=== PATIENT | female | born 1965 | race American Indian/Alaskan Native ===

== ENCOUNTER 2020-11-21 00:49 | Emergency (ER) | payer SELFPAY ==
--- NOTE | 2020-11-21 01:27 | Event Note ---
ED Screening Note Date of service: 11/21/20 Time: :26 ED Screening Note: Pt c/o hearing voices x 1 week denies hx of schizohrenia or bipolar disorder no SI/HI or visual hallucinations denies JUAREZ or vision changes This initial assessment/diagnostic orders/clinical plan/treatment(s) is/are norton bject to change based on patients health status, clinical progression and re- assessment by fellow clinical providers in the ED. Further treatment and workup at subsequent clinical providers discretion. Patient/guardian urged not to elope from the ED as their condition may be serious if not clinically assessed and managed. Initial orders include: labs CT head
[2020-11-21 02:14] LABS: Eosinophils # (Auto) 0.1 K/mm3 (0.0-0.4); Hematocrit 30.1 % (30.3-42.9); Hemoglobin 9.4 gm/dl (10.1-14.3); Lymphocytes # (Auto) 1.4 K/mm3 (1.2-5.4); Lymphocytes % (Auto) 30.5 % (13.4-35.0); Mean Corpuscular HGB Conc 31 % (30-34); Monocytes # (Auto) 0.3 K/mm3 (0.0-0.8); Monocytes % (Auto) 6.6 % (0.0-7.3); Platelet Count 227 K/mm3 (140-440); Red Blood Count 4.42 M/mm3 (3.65-5.03); Red Cell Distribution Width 17.3 % (13.2-15.2)
[2020-11-21 02:15] LABS: Mean Corpuscular Volume 68 fl (79-97)
--- NOTE | 2020-11-21 02:20 | Cat Scan Report ---
CT HEAD/BRAIN WO CON INDICATION / CLINICAL INFORMATION: Patient claims to have auditory hallucinations. TECHNIQUE: All CT scans at this location are performed using CT dose reduction for ALARA by means of automated e xposure control. COMPARISON: None available. FINDINGS: The ventricular system is normal in size and configuration. There are minimal small vessel ischemic c hanges in the periventricular white matter. No focal lesion or mass effect is seen. There is no evide nce of intracranial hemorrhage or acute major vessel occlusion. The calvarium is intact. The visualized paranasal sinuses and mastoid air cells are clear. IMPRESSION: No acute abnormality. Signer Name: Kurtis Sandy MD Signed: 11/21/2020 2:16 AM Workstation Name: [id number]
[2020-11-21 02:34] LABS: Alanine Aminotransferase 10 units/L (7-56); Albumin 4.1 g/dL (3.9-5); BUN/Creatinine Ratio 23; Blood Urea Nitrogen 18 mg/dL (7-17); Calcium 9.3 mg/dL (8.4-10.2); Hemolysis Index 2
--- NOTE | 2020-11-21 04:42 | Emergency Department Report ---
HPI - General Chief Complaint: Psych Time Seen by Provider: 11/21/20 01:05 - [facility] HPI: Room 29 The patient is a 55-year-old female present with a chief complaint of auditory hallucinations. Patient states for several months only at night she hears audit ory hallucinations. The patient states that the hallucinations are a low voice talking about things that they are going to do to her for example she heard the voices state "let's go on and knock her off so we can get the insurance money." ED Past Medical Hx - Past Medical History Previous Medical History?: Yes Hx Hypertension: Yes Hx Asthma: Yes (as a child) - Surgical History Past Surgical History?: No - Family History Family history: no significant - Social History Smoking Status: Never Smoker Substance Use Type: None (Denies illicit drug use) - Medications Home Medications: Home Medications Medication Instructions Recorded Confirmed Last Taken Type Valsartan [Diovan] 160 mg PO QDAY 11/21/20 11/21/20 Unknown History amLODIPine [Norvasc] 5 mg PO DAILY 11/21/20 11/21/20 Unknown History ED Review of Systems ROS: Stated complaint: MH EVAL Other details as noted in HPI Constitutional: no symptoms reported Eyes: denies: eye pain ENT: denies: throat pain Respiratory: no symptoms reported Cardiovascular: denies: chest pain Endocrine: no symptoms reported Gastrointestinal: denies: abdominal pain Genitourinary: denies: dysuria Musculoskeletal: denies: back pain Neurological: denies: headache Psychiatric: auditory hallucinations. denies: visual hallucinations, homicidal thoughts, suicidal thoughts Physical Exam - Physical Exam Physical Exam: GENERAL: The patient is well-developed well-nourished female sitting in chair not appearing to be in acute distress. [] HEENT: Normocephalic. Atraumatic. Extraocular motions are intact. Patient has moist mucous membranes. NECK: Supple. No meningitic signs are noted. No nuchal rigidity CHEST/LUNGS: Clear to auscultation. There is no respiratory distress noted. HEART/CARDIOVASCULAR: Regular. There is no tachycardia. There is no gallop rub or murmur. ABDOMEN: Abdomen is soft, nontender. Patient has normal bowel sounds. There is no abdominal distention. SKIN: There is no rash. There is no edema. There is no diaphoresis. NEURO: The patient is awake, alert, and oriented. The patient is cooperative. The patient has no focal neurologic deficits. The patient has normal speech. Cranial nerves II through XII grossly intact MUSCULOSKELETAL:There is no evidence of acute injury. ED Medical Decision Making - Lab Data Result diagrams: 11/21/20 01:39 11/21/20 01:39 - Differential Diagnosis Psychosis NOS, adjustment disorder, schizophrenia, bipolar disorder Critical care attestation.: If time is entered above; I have spent that time in minutes in the direct care of this critically ill patient, excluding procedure time. ED Disposition Clinical Impression: Auditory hallucinations Disposition: DC/TX-65 PSY HOSP/PSY UNIT Is pt being admited?: No Does the pt Need Aspirin: No Condition: Stable Referrals: LUIS DANIEL BAHENA MD [Primary Care Provider] - 3-5 Days
[2020-11-21 05:32] LABS: Amphetamine Screen,Urine PRESUMPTIVE NEGATIVE; Benzodiazepines Screen,Urine PRESUMPTIVE NEGATIVE; Cannabinoid Screen,Urine PRESUMPTIVE NEGATIVE; Cocaine Screen,Urine PRESUMPTIVE NEGATIVE; Methadone Screen,Urine PRESUMPTIVE NEGATIVE; Opiate Screen,Urine PRESUMPTIVE NEGATIVE
[2020-11-21 05:49] LABS: Mucus,Urine FEW /HPF
[2020-11-21 05:52] LABS: Bilirubin,Urine NEG (Negative); Blood,Urine NEG (Negative); Color,Urine Yellow (Yellow); Urobilinogen,Urine < 2.0 mg/dL (<2.0)
--- NOTE | 2020-11-21 10:25 | Consultation ---
History of Present Illness - Reason for Consult Consult date: 11/21/20 Reason for consult: psychosis - History of Present Psychiatric Illness Per ED note: "The patient is a 55-year-old female present with a chief complaint of auditory hallucinations. Patient states for several months only at night she hears auditory hallucinations. The patient states that the hallucinations are a low voice talking about things that they are going to do to her for example she heard the voices state "let's go on and knock her off so we can get the insurance money." During my interview with 55y/o Danna Fabian, the patient is a/o x 3. She is suffering from acute psychosis. She is fidgety talkative. The patient states she is suffering from "memory loss and hallucinations." She says "I can't tell whats real or fake." She says she's been experiencing this for about two months. She says she hears her brother and different people saying things like "Steffany has gotten real bad. Lets knock her off for her insurance money." She says "they don't know what to do with me so that's probably why my brother is saying that." She says "my family thinks I am having a nervous breakdown because I lost my mom, my job with the [employer], my house and my dog." The patient says, she "believes her family has a camera in my room to watch me and make plans." She says she is "having a hard time differentiating the voices from the real." She then says, "I will defend myself if they are trying to hurt me." The patient pulls out her cellphone and shows me a bunch of text messages that she has been sending multiple people about hearing voices. "she says I just want them to know how bad the voices are and what they are saying." The patient then says, "I had to drive off in the middle of the night because I couldn't take it." She denies suicidal thoughts, and says "I wouldn't hurt me, I'm a woman of God." When asked about homicidal thoughts, the patient states "no I don't want to hurt nobody, but if they are trying to knock me off I will defend myself." PAST PSYCHIATRIC HISTORY Diagnoses: Denies Suicide attempts or Self-harm behavior: Denies Prior psychiatric hospitalizations: Denies Substance Abuse history: Denies Previous psychiatric medications tried: Denies Outpatient treatment: No PAST MEDICAL HISTORY: None reported Family Psychiatric History: None reported or documented SOCIAL HISTORY Marital Status: Single Living Arrangements: with brother Employment Status: unemployed Access to guns/weapons: Denies Education: History of Abuse: Denies Legal History: Denies EVIEW OF SYSTEMS Constitutional: Negative for weight loss ENT: Negative for stridor Respiratory: Negative for cough or hemoptysis All other systems reviewed and are negative MENTAL STATUS EXAMINATION General Appearance and Behavior: Age appropriate, wearing appropriate clothes, fidgety, cooperative Mood: "okay" Affect and affective range: congruent with mood Thought Process: illogical, circumstantial Thought Content: auditory hallucinations Speech: Normal volume, Regular rate and rhythm Suicidal Ideation: Denies Homicidal Ideation: Denies Hallucinations: Auditory Delusions: paranoia Impulse Control: Limited Insight and Judgment: Limited Memory/Cognition: Normal Attention: Normal Orientation: Alert, oriented Assessment (1) Acute Psychosis (F43.0) (2) Acute Stress Reaction (F43.0) Plan 1013 Risperidone 0.25mg po BID Trazodone 50mg po qhs Sitter: Defer to primary Medical: Per primary Disposition: recommend acute inpatient treatment. Will follow. Thank you for this consult. Case staffed with Dr. Rock Medications and Allergies Allergies Allergy/AdvReac Type Severity Reaction Status Date / Time shellfish derived Allergy Unknown Verified 11/21/20 01:30 Mental Status Exam - Vital signs Last Vital Signs Temp Pulse Resp 16 11/21/20 05:14 BP Pulse Ox Results Result Diagrams: 11/21/20 01:39 11/21/20 01:39 Abnormal lab results 11/21/20 11/21/20 11/21/20 Range/Units 01:39 01:39 01:39 Hgb 9.4 L (10.1-14.3) gm/dl Hct 30.1 L (30.3-42.9) % MCV 68 L (79-97) fl MCH 21 L (28-32) pg RDW 17.3 H (13.2-15.2) % BUN 18 H (7-17) mg/dL Salicylates < 0.3 L (2.8-20.0) mg/dL Acetaminophen (10.0-30.0) ug/mL 11/21/20 Range/Units 01:39 Hgb (10.1-14.3) gm/dl Hct (30.3-42.9) % MCV (79-97) fl MCH (28-32) pg RDW (13.2-15.2) % BUN (7-17) mg/dL Salicylates (2.8-20.0) mg/dL Acetaminophen 5.0 L (10.0-30.0) ug/mL All other labs normal.
[2020-11-21] MEDS: risperiDONE 0.25 MG TAB PO SCH ×2 (12:55→22:06)
[2020-11-21] MEDS ORDERED: amLODIPine 5 MG TAB PO ONE (21:59)
[2020-11-21] MEDS ORDERED: traZODone 50 MG TAB PO SCH (22:00)
[2020-11-22 08:47] LABS: HCG Qualitative,Urine Negative (Negative)
--- NOTE | 2020-11-22 09:18 | Progress Note ---
Subjective - Reason for Consult Consult date: 11/22/20 Reason for consult: psychosis - Chief Complaint Chief complaint: During my interview with the patient she is standing up in her room. She is paranoid, and hallucinating, although she denies initially. The patient says she's doing "good." She says "this is not my breakfast. This is not my handwriting." I tried redirecting the patient but she states "I heard them say this is not my tray." She then says "did they put medicine in this food." The patient then says "I'm not eating this." She denies SI/HI, stating "I never was. I'm a woman of God." When asking the patient if I could speak with her brother, she says "yes but I don't remember the number." She then says, "tell everybody out there I'm not crazy and I only hear hallucinations at night." She then says "I can hear everything they saying." After speaking with the sitter, he states that the patient constantly thinks that someone is mixing up her food, giving her the wrong tray, and hearing people say she has COVID. He says the patient has been very paranoid and has given them several numbers for her brother but none are working. REVIEW OF SYSTEMS Constitutional: Negative for weight loss ENT: Negative for stridor Respiratory: Negative for cough or hemoptysis All other systems reviewed and are negative MENTAL STATUS EXAMINATION General Appearance and Behavior: Age appropriate, wearing appropriate clothes, fidgety, cooperative Mood: "okay" Affect and affective range: congruent with mood Thought Process: illogical, circumstantial Thought Content: auditory hallucinations Speech: Normal volume, Regular rate and rhythm Suicidal Ideation: Denies Homicidal Ideation: Denies Hallucinations: Auditory Delusions: paranoia Impulse Control: Limited Insight and Judgment: Limited Memory/Cognition: Normal Attention: Normal Orientation: Alert, oriented Assessment (1) Acute Psychosis (F43.0) (2) Acute Stress Reaction (F43.0) Plan 1013 Increase Risperidone 0.5mg po BID Start Prozac 10mg po daily Sitter: Defer to primary Medical: Per primary Disposition: recommend acute inpatient treatment. Will follow. Thank you for this consult. Case staffed with Dr. Rock Mental Status Exam - Vital signs Last Vital Signs Temp 97.4 F L 11/22/20 08:14 Pulse 80 11/22/20 08:14 Resp 18 11/22/20 08:14 BP 136/76 11/22/20 08:14 Pulse Ox 99 11/22/20 08:14
[2020-11-22] MEDS ORDERED: SERTRALINE 25 MG TAB PO SCH (10:00)
[2020-11-22] MEDS ORDERED: risperiDONE 0.25 MG TAB PO SCH (10:00)
[2020-11-22] MEDS ORDERED: FLUoxetine 10 MG TAB PO SCH (10:00)
[2020-11-22] MEDS ORDERED: amLODIPine 5 MG TAB PO SCH (10:00)
[2020-11-22] MEDS ORDERED: VALSARTAN 160MG TAB PO SCH (10:00)
[2020-11-22 17:25] LABS: Basophils % (Auto) 0.7 % (0.0-1.8); Eosinophils # (Auto) 0.1 K/mm3 (0.0-0.4); Hematocrit 30.5 % (30.3-42.9); Hemoglobin 9.5 gm/dl (10.1-14.3); Lymphocytes # (Auto) 1.1 K/mm3 (1.2-5.4); Lymphocytes % (Auto) 24.7 % (13.4-35.0); Mean Corpuscular HGB Conc 31 % (30-34); Monocytes # (Auto) 0.3 K/mm3 (0.0-0.8); Monocytes % (Auto) 6.9 % (0.0-7.3); Platelet Count 238 K/mm3 (140-440); Red Blood Count 4.48 M/mm3 (3.65-5.03); Red Cell Distribution Width 17.6 % (13.2-15.2)
[2020-11-22 17:26] LABS: Mean Corpuscular Volume 68 fl (79-97)
[2020-11-22 18:32] VITALS: BP 157/92
== END 2020-11-22 19:30 ==
LOC: ED 00:49
DX: R44.0 Auditory hallucinations (principal); Z20.828 Contact with and (suspected) exposure to other viral communicable diseases; I10 Essential (primary) hypertension; J45.909 Unspecified asthma, uncomplicated; Z79.899 Other long term (current) drug therapy; Z91.013 Allergy to seafood
CPT/HCPCS: 36415; 70450; 80053; 80307; 81001; 81025; 85025; 99285; U0003; 80320; G0480

== ENCOUNTER 2021-08-04 20:01 | Emergency (ER) | payer OTHER ==
--- NOTE | 2021-08-04 21:57 | Emergency Department Report ---
ED Psych HPI - General Chief Complaint: Medical Clearance Stated Complaint: MEMORY LOSS Time Seen by Provider: 08/04/21 21:27 Source: patient Mode of arrival: Ambulatory - History of Present Illness Initial Comments: 56-year-old female presents to ED for mental health evaluation. Brother states patient has history of "memory loss." States she was admitted for same earlier this year. Patient had a previous admission for acute psychosis. Brother states over the last 2 weeks patient's mental health has been declining. States that she has been increasingly paranoid and having hallucinations. Patient was at her friend's house last week and stated that she heard people talking about her behind a close door and trying to break-in. Today, brother states that patient called the police on him because she thought that he was trying to get rid of her and kick her out of his house. Patient denies any SI or HI. When I asked her about hallucinations, patient states that she cannot remember because she has memory loss. Brother reports patient follows up at [facility] Complaint: other -: week(s) (2) Associated Psychiatric Symptoms: auditory hallucinations, other (Paranoia) History of same: Yes Quality: constant Improves With: none Worsens With: none Associated Symptoms: denies other symptoms Treatments Prior to Arrival: none - Related Data Home Medications Medication Instructions Recorded Confirmed Last Taken Valsartan [Diovan] 320 mg PO QDAY 08/05/21 08/05/21 1 Day Ago ~08/04/21 donepeziL [Aricept] 10 mg PO QDAY 08/05/21 08/05/21 2 Days Ago ~08/03/21 Previous Rx's Medication Instructions Recorded Last Taken Type OLANzapine [ZyPREXA] 10 mg PO DAILY 30 Days #30 tablet 08/06/21 Unknown Rx cephALEXin [Keflex] 500 mg PO Q6HR #8 capsule 08/06/21 Unknown Rx Allergies Allergy/AdvReac Type Severity Reaction Status Date / Time shellfish derived Allergy Unknown Verified 11/21/20 01:30 ED Review of Systems ROS: Stated complaint: MEMORY LOSS Other details as noted in HPI Comment: All other systems reviewed and negative Psychiatric: auditory hallucinations, other (Paranoid reported) ED Past Medical Hx - Past Medical History Previous Medical History?: Yes Hx Hypertension: Yes Hx Asthma: Yes (as a child) - Surgical History Past Surgical History?: No - Social History Smoking Status: Unknown if ever smoked - Medications Home Medications: Home Medications Medication Instructions Recorded Confirmed Last Taken Type Valsartan [Diovan] 320 mg PO QDAY 08/05/21 08/05/21 1 Day Ago History ~08/04/21 donepeziL [Aricept] 10 mg PO QDAY 08/05/21 08/05/21 2 Days Ago History ~08/03/21 OLANzapine [ZyPREXA] 10 mg PO DAILY 30 Days #30 tablet 08/06/21 Unknown Rx cephALEXin [Keflex] 500 mg PO Q6HR #8 capsule 08/06/21 Unknown Rx ED Physical Exam - General Limitations: No Limitations General appearance: alert, in no apparent distress - Head Head exam: Present: atraumatic, normocephalic - Eye Eye exam: Present: normal appearance, EOMI - ENT ENT exam: Present: mucous membranes moist - Neck Neck exam: Present: normal inspection - Respiratory Respiratory exam: Present: normal lung sounds bilaterally. Absent: respiratory distress - Cardiovascular Cardiovascular Exam: Present: regular rate, normal rhythm - GI/Abdominal GI/Abdominal exam: Present: soft. Absent: distended, tenderness - Extremities Exam Extremities exam: Present: normal inspection - Neurological Exam Neurological exam: Present: alert, oriented X3 - Psychiatric Psychiatric exam: Present: flat affect - Skin Skin exam: Present: warm, dry, intact, normal color ED Course Vital Signs 08/04/21 08/05/21 08/05/21 20:18 00:18 00:30 Temperature 98.0 F Pulse Rate 65 72 Respiratory 18 14 Rate Blood Pressure 158/70 Blood Pressure 179/109 [Right] O2 Sat by Pulse 96 97 97 Oximetry 08/05/21 08/05/21 08/05/21 08:16 10:10 20:35 Temperature 98 F Pulse Rate 68 68 Respiratory 20 Rate Blood Pressure 162/82 Blood Pressure 162/82 [Right] O2 Sat by Pulse 96 97 Oximetry 08/05/21 08/06/21 08/06/21 20:57 08:17 10:09 Temperature 97.8 F 98.6 F Pulse Rate 62 80 80 Respiratory 16 18 Rate Blood Pressure 156/74 Blood Pressure 135/84 156/77 [Right] O2 Sat by Pulse 98 99 Oximetry ED Medical Decision Making - Lab Data Result diagrams: 08/04/21 21:55 08/04/21 21:55 - Medical Decision Making 56-year-old female presents to ED with acute psychosis. Labs are unremarkable except for mild UTI and mild hypokalemia. Patient has been given p.o. potassium. Antibiotic therapy has been initiated. Home meds were restarted. Patient is medically clear for mental health evaluation. Will dispo per psych Critical care attestation.: If time is entered above; I have spent that time in minutes in the direct care of this critically ill patient, excluding procedure time. ED Disposition Clinical Impression: Hypokalemia, Pyuria, Encounter for behavioral health screening, Encounter for medical screening examination Disposition: HOME / SELF CARE / HOMELESS Is pt being admited?: No Condition: Good Additional Instructions: Please follow-up with an outpatient primary care doctor within the next 5 to 7 days. Cultures were sent today, and results will be available in the next 3 to 5 days. Please have your primary care doctor contact the medical records d epartment to obtain culture results. It is suspected that the patient most likely has dementia, so therefore, please follow-up with your outpatient primary care doctor for further outpatient confirmatory testing. Patient is found to have mildly low potassium level today, please make certain to have patient consume foods that are high in potassium, such as banana, avocado, and potatoes. Follow-up with an outpatient mental health professional within the next month. Please return to the emergency room right away with new pain, worsened pain, migration of pain, projectile vomiting, change in mental status, confusion, inability to tolerate liquid feeds, new, worsened or different symptoms not present on the initial emergency room evaluation. Professional and Agency Contacts To help [facility](12/05) [place] Crisis Line: Suicide Prevention Line: Crisis Text Line: Text START to 400815 Emergency: 911 Outpatient COMMUNITY Behavioral Health Resources: [place]: [facility] [address], [place] [address] [place]: [facility] [address] [place] [address] [place]: [facility] [address] [place] [address] Friday thru Friday - 8am - 5pm [place]: [facility] Address: [address], [place] [address] [place]: [facility] Address: [address], [place] [address] Friday thru Friday- 7am-2pm [facility] Address: [address], [place] [address] Friday thru Friday: 8:30AM-5PM Prescriptions: cephALEXin [Keflex] 500 mg PO Q6HR #8 capsule OLANzapine [ZyPREXA] 10 mg PO DAILY 30 Days #30 tablet Referrals: MARIANELA MOLINA [Other] - 3-5 Days
[2021-08-04 22:23] LABS: Basophils % (Auto) 0.7 % (0.0-1.8); Eosinophils % (Auto) 0.2 % (0.0-4.3); Hematocrit 41.2 % (30.3-42.9); Hemoglobin 13.8 gm/dl (10.1-14.3); Lymphocytes # (Auto) 1.2 K/mm3 (1.2-5.4); Lymphocytes % (Auto) 27.4 % (13.4-35.0); Mean Corpuscular HGB Conc 34 % (30-34); Mean Corpuscular Volume 88 fl (79-97); Monocytes # (Auto) 0.4 K/mm3 (0.0-0.8); Monocytes % (Auto) 8.4 % (0.0-7.3); Platelet Count 222 K/mm3 (140-440); Red Blood Count 4.69 M/mm3 (3.65-5.03); Red Cell Distribution Width 13.1 % (13.2-15.2)
[2021-08-04 22:32] LABS: BUN/Creatinine Ratio 19; Blood Urea Nitrogen 17 mg/dL (7-17); Calcium 10.1 mg/dL (8.4-10.2); Hemolysis Index 7
[2021-08-04 22:43] LABS: Amphetamine Screen,Urine Negative; Benzodiazepines Screen,Urine Negative; Cannabinoid Screen,Urine Negative; Cocaine Screen,Urine Negative; Methadone Screen,Urine Negative; Opiate Screen,Urine Negative
[2021-08-04 22:49] LABS: Bilirubin,Urine NEG (Negative); Blood,Urine SM (Negative); Color,Urine Yellow (Yellow); Mucus,Urine 2+ /HPF; Urobilinogen,Urine < 2.0 mg/dL (<2.0)
[2021-08-04] MEDS ORDERED: POTASSIUM CHLORIDE ER 20 MEQ TAB PO ONE (22:54)
[2021-08-04] MEDS: cephALEXin 500 MG CAP PO SCH (23:25)
--- NOTE | 2021-08-05 09:52 | Consultation ---
History of Present Illness - Reason for Consult Consult date: 08/05/21 Reason for consult: mental health evaluation - History of Present Psychiatric Illness Per ED Note: 56-year-old female presents to ED for mental health evaluation. Brother states patient has history of "memory loss." States she was admitted for same earlier this year. Patient had a previous admission for acute psychosis. Brother states over the last 2 weeks patient's mental health has been declining. States that she has been increasingly paranoid and having hallucinations. Patient was at her friend's house last week and stated that she heard people talking about her behind a close door and trying to break-in. Today, brother states that patient called the police on him because she thought that he was trying to get rid of her and kick her out of his house. Patient denies any SI or HI. When I asked her about hallucinations, patient states that she cannot remember because she has memory loss. Brother reports patient follows up at [facility]. Danna Sanchez is a 56 year old female with history of acute psychosis. In my interview with the patient, she is delusional and paranoid. The patient reports that she iis under a lot of stress " I lost my mother,sister, and my Job at the [employer]." The Patient states " I understand that I have cancer" when asked who diagnosed her with that, she that states she heard it from the TV. She endorses thought broadcasting stating " I hear voices from the TV." She denies any current suicidal/homicidal ideation and denies hallucinations. PAST PSYCHIATRIC HISTORY: Diagnoses: Acute psychosis Suicide attempts or Self-harm behavior: Denies Prior psychiatric hospitalizations:Yes Substance Abuse history:Denies Previous psychiatric medications tried: Unknown Outpatient treatment: Yes PAST MEDICAL HISTORY: Diabetes Family Psychiatric History: None reported or documented SOCIAL HISTORY Marital Status: Single Living Arrangements: Lives with brother Employment Status: Retired Access to guns/weapons: Denies Education: college History of Abuse: Denies Legal History: Denies REVIEW OF SYSTEMS Constitutional: Negative for weight loss ENT: Negative for stridor Respiratory: Negative for cough or hemoptysis All other systems reviewed and are negative MENTAL STATUS EXAMINATION General Appearance and Behavior: Age appropriate, good hygiene, not wearing appropriate clothes, good eye contact, cooperative polite with questioning. Cooperation: Participating/engaged Psychomotor Behavior: Psychomotor normal Mood: Delusional Affect and affective range: congruent to stated mood Thought Process: Thought insertion Thought Content: paranoid Speech: Normal tone and pace Suicidal Ideation: Denies Homicidal Ideation: Denies Hallucinations: Denies Delusions: Yes Impulse Control: Limited Insight and Judgment: Limited insight and poor judgment Memory: abnormal Attention: Divided Orientation: A/o Assessment and Plan (1)Schizophrenia-F20.9 (2) Treatment Plan 1013 Zyprexa 10mg po daily Medical: per primary Disposition: Recommend acute psychiatric inpatient treatment Will follow. Thanks Case staffed with Dr. Rock Medications and Allergies Medications and Allergies Allergies Allergy/AdvReac Type Severity Reaction Status Date / Time shellfish derived Allergy Unknown Verified 11/21/20 01:30 Home Medications Medication Instructions Recorded Confirmed Last Taken Type Valsartan [Diovan] 320 mg PO QDAY 08/05/21 08/05/21 1 Day Ago History ~08/04/21 donepeziL [Aricept] 10 mg PO QDAY 08/05/21 08/05/21 2 Days Ago History ~08/03/21 Active Meds: Active Medications Cephalexin (Cephalexin 500 Mg Cap) 500 mg PO Q12HR [facility]; Protocol Stop: 08/07/21 10:01 Last Admin: 08/04/21 23:25 Dose: 500 mg Documented by: Donepezil HCl (Donepezil 10 Mg Tab) 10 mg PO QDAY [facility] Valsartan (Valsartan 160mg Tab) 320 mg PO QDAY [facility] Mental Status Exam - Vital signs Last Vital Signs Temp 98 F 08/05/21 08:16 Pulse 68 08/05/21 08:16 Resp 20 08/05/21 08:16 BP 162/82 08/05/21 08:16 Pulse Ox 96 08/05/21 08:16 Results Result Diagrams: 08/04/21 21:55 08/04/21 21:55 Abnormal lab results 08/04/21 08/04/21 08/04/21 Range/Units 21:55 21:55 21:55 WBC 4.2 L (4.5-11.0) K/mm3 RDW 13.1 L (13.2-15.2) % Pratt % (Auto) 8.4 H (0.0-7.3) % Potassium 3.5 L (3.6-5.0) mmol/L Carbon Dioxide 21 L (22-30) mmol/L Glucose 101 H (65-100) mg/dL Urine WBC (Auto) (0.0-6.0) /HPF Salicylates < 0.3 L (2.8-20.0) mg/dL Acetaminophen (10.0-30.0) ug/mL 08/04/21 08/04/21 Range/Units 21:55 22:20 WBC (4.5-11.0) K/mm3 RDW (13.2-15.2) % Pratt % (Auto) (0.0-7.3) % Potassium (3.6-5.0) mmol/L Carbon Dioxide (22-30) mmol/L Glucose (65-100) mg/dL Urine WBC (Auto) 9.0 H (0.0-6.0) /HPF Salicylates (2.8-20.0) mg/dL Acetaminophen 5.0 L (10.0-30.0) ug/mL All other labs normal.
[2021-08-05] MEDS: DONEPEZIL 10 MG TAB PO SCH (10:01)
[2021-08-05] MEDS: VALSARTAN 160MG TAB PO SCH (10:10)
[2021-08-05] MEDS: cephALEXin 500 MG CAP PO SCH ×2 (10:11→22:28)
[2021-08-05] MEDS ORDERED: HALOPERIDOL LACTATE 5 MG/1 ML INJ IM ONE (15:43)
--- NOTE | 2021-08-05 15:43 | Emergency Department Report ---
Blank Doc - Documentation Documentation: Patient is still demonstrating bizarre and paranoid behavior with features. She is becoming agitated and asking for a suitcase. She has been medically cleared. Patient was seen by psychiatric services. It was felt admission was necessary.
[2021-08-06] MEDS: cephALEXin 500 MG CAP PO SCH (10:08)
[2021-08-06] MEDS: VALSARTAN 160MG TAB PO SCH (10:09)
[2021-08-06] MEDS: DONEPEZIL 10 MG TAB PO SCH (10:09)
[2021-08-06 10:10] VITALS: BP 156/74
[2021-08-06] MEDS ORDERED: diphenhydrAMINE 25 MG CAP PO PRN (10:40)
[2021-08-06] MEDS ORDERED: LORazepam 2 MG/ML VIAL IM PRN (10:40)
[2021-08-06] MEDS ORDERED: ACETAMINOPHEN 325 MG TAB PO PRN (10:40)
--- NOTE | 2021-08-06 10:42 | Event Note ---
Date: 08/06/21 The patient was evaluated in the emergency department for symptoms described in the history of present illness. He/she was evaluated in the context of the global COVID-19 pandemic, which necessitated consideration that the patient might be at risk for infection with the virus that causes COVID-19. Institutional protocols and algorithms that pertain to the evaluation of patients at risk for COVID-19 are in a state of rapid change based on information released by regulatory bodies including the CDC and federal and state organizations. These policies and algorithms were followed during the patient's care in the emergency department. Please note that these policies, procedures and recommendations changed on a rapid basis. Laboratory studies, vital signs, nursing documentation, ER documentation, and psychiatric documentation are reviewed and appreciated. Nursing team reports no acute events this morning or concerns. The patient is awake and ambulating and does not appear to be in any acute distress. As per collateral information obtained from nursing team and review of charts, suspect dementia with psychotic features. Covid swab is negative. The patient was deemed medically suitable for psychiatric disposition and placement during his initial ER evaluation. The patient continues to remain medically suitable for psychiatric placement and disposition. sHe is currently pending psychiatric placement. No emergent complaints were articulated to myself by either the patient, or the nursing care team. Vital Signs 08/04/21 08/05/21 08/05/21 20:18 00:18 00:30 Temperature 98.0 F Pulse Rate 65 72 Respiratory 18 14 Rate Blood Pressure 158/70 Blood Pressure 179/109 [Right] O2 Sat by Pulse 96 97 97 Oximetry 08/05/21 08/05/21 08/05/21 08:16 10:10 20:35 Temperature 98 F Pulse Rate 68 68 Respiratory 20 Rate Blood Pressure 162/82 Blood Pressure 162/82 [Right] O2 Sat by Pulse 96 97 Oximetry 08/05/21 08/06/21 08/06/21 20:57 08:17 10:09 Temperature 97.8 F 98.6 F Pulse Rate 62 80 80 Respiratory 16 18 Rate Blood Pressure 156/74 Blood Pressure 135/84 156/77 [Right] O2 Sat by Pulse 98 99 Oximetry Lab Results 08/04/21 08/04/21 08/04/21 Range/Units 21:55 21:55 21:55 WBC 4.2 L (4.5-11.0) K/mm3 RBC 4.69 (3.65-5.03) M/mm3 Hgb 13.8 (10.1-14.3) gm/dl Hct 41.2 (30.3-42.9) % MCV 88 (79-97) fl MCH 29 (28-32) pg MCHC 34 (30-34) % RDW 13.1 L (13.2-15.2) % Plt Count 222 (140-440) K/mm3 Lymph % (Auto) 27.4 (13.4-35.0) % [place] % (Auto) 8.4 H (0.0-7.3) % Eos % (Auto) 0.2 (0.0-4.3) % Baso % (Auto) 0.7 (0.0-1.8) % Lymph # (Auto) 1.2 (1.2-5.4) K/mm3 [place] # (Auto) 0.4 (0.0-0.8) K/mm3 Eos # (Auto) 0.0 (0.0-0.4) K/mm3 Baso # (Auto) 0.0 (0.0-0.1) K/mm3 Seg Neutrophils % 63.3 (40.0-70.0) % Seg Neutrophils # 2.7 (1.8-7.7) K/mm3 Sodium 143 (137-145) mmol/L Potassium 3.5 L (3.6-5.0) mmol/L Chloride 103.8 (98-107) mmol/L Carbon Dioxide 21 L (22-30) mmol/L Anion Gap 22 mmol/L BUN 17 (7-17) mg/dL Creatinine 0.9 (0.6-1.2) mg/dL Estimated GFR > 60 ml/min BUN/Creatinine Ratio 19 % Glucose 101 H (65-100) mg/dL Calcium 10.1 (8.4-10.2) mg/dL Urine Color (Yellow) Urine Turbidity (Clear) Urine pH (5.0-7.0) Ur Specific [place] (1.003-1.030) Urine Protein (Negative) mg/dL Urine Glucose (UA) (Negative) mg/dL Urine Ketones (Negative) mg/dL Urine Blood (Negative) Urine Nitrite (Negative) Urine Bilirubin (Negative) Urine Urobilinogen (<2.0) mg/dL Ur Leukocyte Esterase (Negative) Urine WBC (Auto) (0.0-6.0) /HPF Urine RBC (Auto) (0.0-6.0) /HPF U Epithel Cells (Auto) (0-13.0) /HPF Urine Mucus /HPF Salicylates (2.8-20.0) mg/dL Urine Opiates Screen Urine Methadone Screen Acetaminophen (10.0-30.0) ug/mL Ur Barbiturates Screen Ur Phencyclidine Scrn Ur Amphetamines Screen U Benzodiazepines Scrn Urine Cocaine Screen U Marijuana (THC) Screen Drugs of Abuse Note Plasma/Serum Alcohol < 0.01 (0-0.07) % Coronavirus (PCR) (Negative) 08/04/21 08/04/21 08/04/21 Range/Units 21:55 21:55 22:20 WBC (4.5-11.0) K/mm3 RBC (3.65-5.03) M/mm3 Hgb (10.1-14.3) gm/dl Hct (30.3-42.9) % MCV (79-97) fl MCH (28-32) pg MCHC (30-34) % RDW (13.2-15.2) % Plt Count (140-440) K/mm3 Lymph % (Auto) (13.4-35.0) % [place] % (Auto) (0.0-7.3) % Eos % (Auto) (0.0-4.3) % Baso % (Auto) (0.0-1.8) % Lymph # (Auto) (1.2-5.4) K/mm3 [place] # (Auto) (0.0-0.8) K/mm3 Eos # (Auto) (0.0-0.4) K/mm3 Baso # (Auto) (0.0-0.1) K/mm3 Seg Neutrophils % (40.0-70.0) % Seg Neutrophils # (1.8-7.7) K/mm3 Sodium (137-145) mmol/L Potassium (3.6-5.0) mmol/L Chloride (98-107) mmol/L Carbon Dioxide (22-30) mmol/L Anion Gap mmol/L BUN (7-17) mg/dL Creatinine (0.6-1.2) mg/dL Estimated GFR ml/min BUN/Creatinine Ratio % Glucose (65-100) mg/dL Calcium (8.4-10.2) mg/dL Urine Color Yellow (Yellow) Urine Turbidity Clear (Clear) Urine pH 5.0 (5.0-7.0) Ur Specific [place] 1.021 (1.003-1.030) Urine Protein 100 mg/dl (Negative) mg/dL Urine Glucose (UA) Neg (Negative) mg/dL Urine Ketones 20 (Negative) mg/dL Urine Blood Sm (Negative) Urine Nitrite Neg (Negative) Urine Bilirubin Neg (Negative) Urine Urobilinogen < 2.0 (<2.0) mg/dL Ur Leukocyte Esterase Mod (Negative) Urine WBC (Auto) 9.0 H (0.0-6.0) /HPF Urine RBC (Auto) 2.0 (0.0-6.0) /HPF U Epithel Cells (Auto) 2.0 (0-13.0) /HPF Urine Mucus 2+ /HPF Salicylates < 0.3 L (2.8-20.0) mg/dL Urine Opiates Screen Urine Methadone Screen Acetaminophen 5.0 L (10.0-30.0) ug/mL Ur Barbiturates Screen Ur Phencyclidine Scrn Ur Amphetamines Screen U Benzodiazepines Scrn Urine Cocaine Screen U Marijuana (THC) Screen Drugs of Abuse Note Plasma/Serum Alcohol (0-0.07) % Coronavirus (PCR) (Negative) 08/04/21 08/05/21 Range/Units 22:20 09:00 WBC (4.5-11.0) K/mm3 RBC (3.65-5.03) M/mm3 Hgb (10.1-14.3) gm/dl Hct (30.3-42.9) % MCV (79-97) fl MCH (28-32) pg MCHC (30-34) % RDW (13.2-15.2) % Plt Count (140-440) K/mm3 Lymph % (Auto) (13.4-35.0) % [place] % (Auto) (0.0-7.3) % Eos % (Auto) (0.0-4.3) % Baso % (Auto) (0.0-1.8) % Lymph # (Auto) (1.2-5.4) K/mm3 [place] # (Auto) (0.0-0.8) K/mm3 Eos # (Auto) (0.0-0.4) K/mm3 Baso # (Auto) (0.0-0.1) K/mm3 Seg Neutrophils % (40.0-70.0) % Seg Neutrophils # (1.8-7.7) K/mm3 Sodium (137-145) mmol/L Potassium (3.6-5.0) mmol/L Chloride (98-107) mmol/L Carbon Dioxide (22-30) mmol/L Anion Gap mmol/L BUN (7-17) mg/dL Creatinine (0.6-1.2) mg/dL Estimated GFR ml/min BUN/Creatinine Ratio % Glucose (65-100) mg/dL Calcium (8.4-10.2) mg/dL Urine Color (Yellow) Urine Turbidity (Clear) Urine pH (5.0-7.0) Ur Specific [place] (1.003-1.030) Urine Protein (Negative) mg/dL Urine Glucose (UA) (Negative) mg/dL Urine Ketones (Negative) mg/dL Urine Blood (Negative) Urine Nitrite (Negative) Urine Bilirubin (Negative) Urine Urobilinogen (<2.0) mg/dL Ur Leukocyte Esterase (Negative) Urine WBC (Auto) (0.0-6.0) /HPF Urine RBC (Auto) (0.0-6.0) /HPF U Epithel Cells (Auto) (0-13.0) /HPF Urine Mucus /HPF Salicylates (2.8-20.0) mg/dL Urine Opiates Screen Negative Urine Methadone Screen Negative Acetaminophen (10.0-30.0) ug/mL Ur Barbiturates Screen Negative Ur Phencyclidine Scrn Negative Ur Amphetamines Screen Negative U Benzodiazepines Scrn Negative Urine Cocaine Screen Negative U Marijuana (THC) Screen Negative Drugs of Abuse Note Disclamer Plasma/Serum Alcohol (0-0.07) % Coronavirus (PCR) Negative (Negative)
--- NOTE | 2021-08-06 11:34 | Progress Note ---
Subjective - Reason for Consult Consult date: 08/06/21 Reason for consult: Mental health evaluation - Chief Complaint Chief complaint: The patient was seen today, she reports doing well. The patient is lucid and conversational. She states she feels better today. Sleep and appetitie as good. She denies any current suicidal/homicidal ideation and denies hallucinations. REVIEW OF SYSTEMS Constitutional: Negative for weight loss ENT: Negative for stridor Respiratory: Negative for cough or hemoptysis All other systems reviewed and are negative MENTAL STATUS EXAMINATION General Appearance and Behavior: Age appropriate, good hygiene, not wearing appropriate clothes, good eye contact, cooperative polite with questioning. Cooperation: Participating/engaged Psychomotor Behavior: Psychomotor normal Mood: "ok" Affect and affective range: congruent to stated mood Thought Process: Goal directed Thought Content: Not suicidal Speech: Normal tone and pace Suicidal Ideation: Denies Homicidal Ideation: Denies Hallucinations: Denies Delusions: None Impulse Control: Limited Insight and Judgment: Limited insight and fair judgment Memory: abnormal Attention: Divided Orientation: A/o Assessment and Plan (1)Schizophrenia-F20.9 (2) Treatment Plan DC 1013 Zyprexa 10mg po daily Medical: per primary Disposition: Do not recommend acute psychiatric inpatient treatment. Principal Account Clerk will provide patient with out patiet psychiatry resourcs. Will sign off. Thanks Case staffed with Dr. Rock Medications and Allergies Mental Status Exam - Vital signs Last Vital Signs Temp 98.6 F 08/06/21 08:17 Pulse 80 08/06/21 10:09 Resp 18 08/06/21 08:17 BP 156/74 08/06/21 10:09 Pulse Ox 99 08/06/21 08:17
[2021-08-07] MEDS ORDERED: POTASSIUM CHLORIDE ER 20 MEQ TAB PO SCH (10:00)
== END 2021-08-06 15:40 | disposition home or self-care (01) ==
LOC: ED 20:01
DX: F23 Brief psychotic disorder (principal); E87.6 Hypokalemia; Z20.822 Contact with and (suspected) exposure to COVID-19; N39.0 Urinary tract infection, site not specified; I10 Essential (primary) hypertension; J45.909 Unspecified asthma, uncomplicated; Z91.013 Allergy to seafood; Z79.899 Other long term (current) drug therapy
CPT/HCPCS: 36415; 80048; 80307; 81001; 85025; 87086; 96372; 99284; J1630; U0003; 80320; G0480

== ENCOUNTER 2022-01-08 09:04 | Emergency (ER) | payer OTHER ==
[2022-01-08 10:02] LABS: Basophils % (Auto) 0.3 % (0.0-1.8); Eosinophils % (Auto) 0.1 % (0.0-4.3); Hematocrit 46.6 % (30.3-42.9); Hemoglobin 15.3 gm/dl (10.1-14.3); Lymphocytes # (Auto) 0.7 K/mm3 (1.2-5.4); Lymphocytes % (Auto) 13.6 % (13.4-35.0); Mean Corpuscular HGB Conc 33 % (30-34); Mean Corpuscular Volume 87 fl (79-97); Monocytes # (Auto) 0.3 K/mm3 (0.0-0.8); Monocytes % (Auto) 5.6 % (0.0-7.3); Platelet Count 231 K/mm3 (140-440); Red Blood Count 5.38 M/mm3 (3.65-5.03); Red Cell Distribution Width 12.5 % (13.2-15.2)
[2022-01-08 10:19] LABS: BUN/Creatinine Ratio 15; Blood Urea Nitrogen 15 mg/dL (7-17); Calcium 10.2 mg/dL (8.4-10.2); Hemolysis Index 4
--- NOTE | 2022-01-08 11:01 | Electrocardiograph Report ---
[facility] Test Date: 2022-01-08 Test Time: 09:44:03 Pat Name: KATYA TOTH Department: Room: Gender: F Dean Of Women: EDWIN : 1965 Requested By: JIL SUTTNO Order Number: [id number] Reading MD: Bogdan Swanson Measurements Intervals [place] Rate: 75 P: 63 DE: 173 QRS: -23 QRSD: 76 T: 34 QT: 360 QTc: 404 Interpretive Statements Sinus rhythm Left atrial enlargement No previous ECG available for comparison Electronically Signed On 01-08-2022 11:00:45 EDT by Bogdan Swanson
--- NOTE | 2022-01-08 11:19 | Emergency Department Report ---
ED Psych HPI - General Chief Complaint: Medical Clearance Stated Complaint: [facility], LEFT HOME Time Seen by Provider: 01/08/22 10:19 Source: patient, EMS Mode of arrival: Ambulatory - History of Present Illness Initial Comments: Patient is 56-year-old female with history of schizophrenia. Patient brought to the emergency room accompanied by her brother. Patient was recently put in a [facility] nursing home informed her brother that she walked out and went to the neighborhood and asked him to call the police. Mother stated that she has been very delusional and paranoid. Patient thinking that she has cancer however her brother confirmed that she had full work-up by her primary care physician and no cancer was found. He stated that his she was taking Risperdal but is not taking it anymore. Patient denied any suicidal homicidal ideation. No visual or auditory hallucination. Patient pause for a while before she answer questions. I believe patient is responding to internal stimuli. MD Complaint: altered mental status Associated Psychiatric Symptoms: racing thoughts - Related Data Home Medications Medication Instructions Recorded Confirmed Last Taken Valsartan [Diovan] 320 mg PO QDAY 08/05/21 08/05/21 1 Day Ago ~08/04/21 donepeziL [Aricept] 10 mg PO QDAY 08/05/21 08/05/21 2 Days Ago ~08/03/21 Previous Rx's Medication Instructions Recorded Last Taken Type OLANzapine [ZyPREXA] 10 mg PO DAILY 30 Days #30 tablet 08/06/21 Unknown Rx cephALEXin [Keflex] 500 mg PO Q6HR #8 capsule 08/06/21 Unknown Rx Allergies Allergy/AdvReac Type Severity Reaction Status Date / Time shellfish derived Allergy Unknown Verified 01/08/22 09:08 ED Review of Systems ROS: Stated complaint: [facility], LEFT HOME Other details as noted in HPI Comment: All other systems reviewed and negative Constitutional: denies: chills, fever Respiratory: denies: cough, shortness of breath, SOB with exertion Cardiovascular: denies: chest pain, palpitations Gastrointestinal: denies: abdominal pain, nausea Neurological: denies: headache, weakness, numbness, paresthesias, confusion, abnormal gait Psychiatric: denies: auditory hallucinations, visual hallucinations, homicidal thoughts, suicidal thoughts ED Past Medical Hx - Past Medical History Hx Hypertension: Yes Hx Asthma: Yes (as a child) - Social History Smoking Status: Unknown if ever smoked - Medications Home Medications: Home Medications Medication Instructions Recorded Confirmed Last Taken Type Valsartan [Diovan] 320 mg PO QDAY 08/05/21 08/05/21 1 Day Ago History ~08/04/21 donepeziL [Aricept] 10 mg PO QDAY 08/05/21 08/05/21 2 Days Ago History ~08/03/21 OLANzapine [ZyPREXA] 10 mg PO DAILY 30 Days #30 tablet 08/06/21 Unknown Rx cephALEXin [Keflex] 500 mg PO Q6HR #8 capsule 08/06/21 Unknown Rx ED Physical Exam - General Limitations: Other General appearance: alert, in no apparent distress - Head Head exam: Present: atraumatic, normocephalic, normal inspection - Eye Eye exam: Present: normal appearance - ENT ENT exam: Present: normal exam, normal orophraynx, mucous membranes moist - Neck Neck exam: Present: normal inspection, full ROM. Absent: tenderness, meningismus - Respiratory Respiratory exam: Present: normal lung sounds bilaterally - Cardiovascular Cardiovascular Exam: Present: regular rate, normal rhythm, normal heart sounds - GI/Abdominal GI/Abdominal exam: Present: soft, normal bowel sounds. Absent: distended, tenderness, guarding, rebound, rigid, organomegaly, mass, bruit, pulsatile mass, hernia - Extremities Exam Extremities exam: Present: normal inspection, full ROM, normal capillary refill. Absent: tenderness, pedal edema, joint swelling, calf tenderness - Back Exam Back exam: Present: normal inspection, full ROM. Absent: CVA tenderness (R), CVA tenderness (L) - Neurological Exam Neurological exam: Present: alert, oriented X3, CN II-XII intact, normal gait, reflexes normal. Absent: motor sensory deficit - Psychiatric Psychiatric exam: Present: flat affect. Absent: homicidal ideation, suicidal ideation - Skin Skin exam: Present: warm, intact, normal color ED Course Vital Signs 01/08/22 01/09/22 01/09/22 20:06 05:22 07:35 Temperature 99.1 F 98.4 F Pulse Rate 110 H 68 Respiratory 18 18 18 Rate Blood Pressure 152/93 108/72 [Left] O2 Sat by Pulse 96 98 98 Oximetry 01/09/22 01/09/22 12:00 12:40 Temperature 98.9 F Pulse Rate 128 H Respiratory 18 Rate Blood Pressure 132/86 [Left] O2 Sat by Pulse 98 98 Oximetry ED Medical Decision Making - Lab Data Result diagrams: 01/08/22 09:39 01/08/22 09:39 - EKG Data -: EKG Interpreted by Me EKG shows normal: sinus rhythm Rate: normal - Medical Decision Making Patient is 56-year-old female with history of schizophrenia. Patient brought to the emergency room accompanied by her brother. Patient was recently put in a [facility] nursing home informed her brother that she walked out and went to the neighborhood and asked him to call the police. Mother stated that she has been very delusional and paranoid. Patient thinking that she has cancer however her brother confirmed that she had full work-up by her primary care physician and no cancer was found. He stated that his she was taking Risperdal but is not taking it anymore. Patient denied any suicidal homicidal ideation. No visual or auditory hallucination. Patient pause for a while before she answer questions. I believe patient is responding to internal stimuli. Labs reviewed and is unremarkable. Patient is medically cleared to be evaluated by psychiatric team. Critical care attestation.: If time is entered above; I have spent that time in minutes in the direct care of this critically ill patient, excluding procedure time. ED Disposition Clinical Impression: Schizophrenia Dis[facility]: [facility] Is pt being admited?: No Condition: Stable Referrals: ROSMERY CRUZ MD [Primary Care Provider] - 3-5 Days
[2022-01-08 14:00] LABS: Bilirubin,Urine Negative (Negative); Color,Urine Straw (Yellow)
[2022-01-08 14:01] LABS: Blood,Urine Small (Negative); Urobilinogen,Urine < 2.0 mg/dL (<2.0)
[2022-01-08 14:03] LABS: Amphetamine Screen,Urine Negative; Benzodiazepines Screen,Urine Negative; Cannabinoid Screen,Urine Negative; Cocaine Screen,Urine Negative; Methadone Screen,Urine Negative; Opiate Screen,Urine Negative
[2022-01-08 14:15] LABS: Bacteria,Urine 1+ /HPF (Negative); Mucus,Urine 2+ /HPF
--- NOTE | 2022-01-09 10:12 | Consultation ---
History of Present Illness - Reason for Consult Consult date: 01/09/22 Reason for consult: schizophrenia - History of Present Psychiatric Illness ED Note: Patient is 56-year-old female with history of schizophrenia. Patient brought to the emergency room accompanied by her brother. Patient was recently put in a [facility]. half-way informed her brother that she walked out and went to the neighborhood and asked him to call the police. Mother stated that she has been very delusional and paranoid. Patient thinking that she has cancer however her brother confirmed that she had full work-up by her primary care physician and no cancer was found. He stated that his she was taking Risperdal but is not taking it anymore. Patient denied any suicidal homicidal ideation. No visual or auditory hallucination. Patient pause for a while before she an swer questions. I believe patient is responding to internal stimuli. The patient was seen this morning. She was pacing and responding to internal stimuli. The patient is delusional stating " I'm dying of Cancer and my brother put me in here. " PAST PSYCHIATRIC HISTORY: PAST MEDICAL HISTORY: Diabetes Family Psychiatric History: None reported or documented SOCIAL HISTORY REVIEW OF SYSTEMS Constitutional: Negative for weight loss ENT: Negative for stridor Respiratory: Negative for cough or hemoptysis All other systems reviewed and are negative MENTAL STATUS EXAMINATION General Appearance and Behavior: Age appropriate, good hygiene, not wearing appropriate clothes, good eye contact, cooperative polite with questioning. Cooperation: Participating/engaged Psychomotor Behavior: Psychomotor normal Mood: Delusional Affect and affective range: congruent to stated mood Thought Process: Tangential Thought Content: Paranoid Speech: Normal tone and pace Suicidal Ideation: Denies Homicidal Ideation: Denies Hallucinations: Denies Delusions: Yes Impulse Control: Limited Insight and Judgment: Limited insight and poor judgment Memory: abnormal Attention: Divided Orientation: A/o Assessment and Plan (1)Schizophrenia-F20.9 (2) Treatment Plan Risperidone 2mg po BID Medical: per primary Disposition: Recommend acute psychiatric inpatient treatment Will follow. Thanks Case staffed with Dr. Rock Medications and Allergies Medications and Allergies Medications and Allergies Allergies Allergy/AdvReac Type Severity Reaction Status Date / Time shellfish derived Allergy Unknown Verified 01/08/22 09:08 Home Medications Medication Instructions Recorded Confirmed Last Taken Type Valsartan [Diovan] 320 mg PO QDAY 08/05/21 08/05/21 1 Day Ago History ~08/04/21 donepeziL [Aricept] 10 mg PO QDAY 08/05/21 08/05/21 2 Days Ago History ~08/03/21 OLANzapine [ZyPREXA] 10 mg PO DAILY 30 Days #30 tablet 08/06/21 Unknown Rx cephALEXin [Keflex] 500 mg PO Q6HR #8 capsule 08/06/21 Unknown Rx Mental Status Exam - Vital signs Last Vital Signs Temp 99.1 F 01/08/22 20:06 Pulse 110 H 01/08/22 20:06 Resp 18 01/09/22 05:22 BP 152/93 01/08/22 20:06 Pulse Ox 98 01/09/22 05:22 Results Result Diagrams: 01/08/22 09:39 01/08/22 09:39 Abnormal lab results 01/08/22 01/08/22 Range/Units 09:39 12:54 Glucose 103 H (65-100) mg/dL Urine Blood Small A (Negative) All other labs normal.
[2022-01-09] MEDS ORDERED: risperiDONE 1 MG TAB PO SCH (11:00)
[2022-01-09 12:40] VITALS: BP 132/86
--- NOTE | 2022-01-09 12:40 | Emergency Department Report ---
Blank Doc - Documentation Documentation: 56-year-old female here with schizophrenia paranoid delusions requiring seclus ion during ED stay due to agitation and trying to escape. Patient remains tachycardic. Awaiting p.o. Risperdal. Nurse informed to recheck vitals after patient has calmed down status post medication
== END 2022-01-09 22:00 ==
LOC: ED 09:04 → EEVIPCON 09:04 → ED 01-09 22:00
DX: F20.9 Schizophrenia, unspecified (principal); Z20.822 Contact with and (suspected) exposure to COVID-19; I10 Essential (primary) hypertension; J45.909 Unspecified asthma, uncomplicated; Z91.013 Allergy to seafood; Z79.899 Other long term (current) drug therapy
CPT/HCPCS: 36415; 80048; 80307; 81001; 82962; 85025; 93005; 99285; U0003